=== PATIENT | male | born 1965 | race Caucasian/White ===

== ENCOUNTER 2021-11-16 09:55 | Emergency (ER) | payer BC ==
[~2021-11-16] VITALS: Ht 180.3 cm; Wt 65.8 kg
[2021-11-16] MEDS ORDERED: HYDROCODONE-AC1 EAC2 PO (10:36)
== END 2021-11-16 11:12 | disposition home or self-care (01) ==
LOC: ED 09:55
DX: U07.1 COVID-19 (principal)